=== PATIENT | female | born 1945 | race Caucasian/White ===

== ENCOUNTER → 2017-09-18 | Outpatient (CLI) | payer MEDICARE, OTHER ==
[~2017-09-18] MED LIST: ACE3 PO; ALPR-429 PO; AMOX-362 PO; CEFU500T50 PO; GLI5 PO; GLIM2TAB43 PO; GLIM4TAB50 PO; GLY25 PO; HCTZ25 PO; HYDR-2966 PO; HYDR-4309 PO; LEVO500T PO; LOR5/325 PO; MET500 PO; METF-1 PO; METF-409 PO; METF-410 PO; NAPR-1043 PO; NEOM10DR44 OT; OXYGEN INH; PIO15 PO; QUIN20TA3 PO; QUIN5TAB PO; SIM10 PO; SIMV5TAB56 PO; SITA100T PO; VERIFIED
--- NOTE | 2017-09-18 16:32 | RADIOLOGY IMAGING REPORT ---
FAC[place] [facility] [place]IENT NAME: ROD VIZCARRA : [id number] MR: [id number] V: [id number] EXAM DATE: [id number] ORDERING PHYSICIAN: ARA GARCIA TECHNOLOGIST: Daja Jordan PROCEDURE:BILATERAL DIGITAL SCREENING MAMMOGRAM COMPARISON:03/23/2016, 03/17/2016 TECHNIQUE: BILATERAL CC & MLO 3D TOMOGRAPHIC IMAGES OF BOTH BREASTS WAS PREFORMED. CAD WAS USED. INDICATIONS:SCREENING BREAST DENSITY: Scattered fibroglandular densities. FINDINGS: There is an 11mm nodule in the 9 o'clock left retroareolar region minimally more prompt prior examination. Recommend targeted ultrasound of this area. Other scattered asymmetries are stable. Benign calcifications in the medial aspects of both breasts is noted. No suspicious microcalcifications present. DIAGNOSTIC CATEGORY 0--INCOMPLETE: NEED ADDITIONAL IMAGING EVALUATION. RECOMMENDATIONS: ULTRASOUND: OF THE 9 O'CLOCK LEFT RETROAREOLAR REGION TO EVALUATE THE 11mm NODULE IN THAT LOCATION. IMPRESSION: BIRADS 1: Incomplete Dictated by: Dominick Arreaga M.D. on 09/18/2017 at 14:47 Transcribed by: MARYJO on 09/18/2017 at 16:02 Approved by: Dominick Arreaga M.D. on 09/18/2017 at 16:31 [facility]
== END ==
LOC: MAMO 01:02
PROVIDERS: ATTEND Family Medicine
DX: Z12.31 Encounter for screening mammogram for malignant neoplasm of breast (principal); R92.8 Other abnormal and inconclusive findings on diagnostic imaging of breast
CPT/HCPCS: 77063; 77067

== ENCOUNTER → 2017-09-25 | Outpatient (CLI) | payer MEDICARE, OTHER ==
--- NOTE | 2017-09-25 17:32 | RADIOLOGY IMAGING REPORT ---
FACILITY: PATIENT NAME: ROD VIZCARRA : [id number] MR: [id number] V: [id number] EXAM DATE: ORDERING PHYSICIAN: ARA GARCIA TECHNOLOGIST: Nidhi Bettencourt PROCEDURE:US LEFT BREAST COMPARISON:Prior mammogram of 09/18/17, 03/23/16, prior left breast ultrasound of 03/23/16. INDICATIONS:FURTHER EVAL FINDINGS: Mildly prominent ducts are identified in the left retroareolar breast measuring up to 3mm in diameter this is most prominent in the 10 o'clock position which mayac count for the mammographic findings. A six month follow-up left mammogram is recommended for further evaluation DIAGNOSTIC CATEGORY 3--PROBABLY BENIGN FINDING. RECOMMENDATIONS: SIX MONTH FOLLOW-UP DIAGNOSTIC MAMMOGRAM: LEFT BREAST. IMPRESSION: BIRADS 3: Probably benign finding A six month follow-up left mammogram is recommended as described above. Dictated by: Racquel Watson M.D. on 09/25/2017 at 11:00 Transcribed by: SHADIA on 09/25/2017 at 15:41 Approved by: Racquel Watson M.D. on 09/25/2017 at 17:31 [facility]
== END ==
LOC: US 02:28
PROVIDERS: ATTEND Family Medicine
DX: N60.49 Mammary duct ectasia of unspecified breast (principal)

== ENCOUNTER → 2017-12-06 | Outpatient (CLI) | payer MEDICARE, OTHER ==
[~2017-12-06] MED LIST changes: +BARIUM SULFATE 176 GM BTL PO ONE; +BARIUM SULFATE 340 GM POWD ONE
--- NOTE | 2017-12-06 10:57 | RADIOLOGY IMAGING REPORT ---
FACILITY: [facility] PATIENT NAME: Dolores Clark : 1945 MR: [id number] V: [id number] EXAM DATE: ORDERING PHYSICIAN: ARA GARCIA TECHNOLOGIST: Location: [facility] Patient: Dolores Clark : 1945 Visit/Account:[id number] Date of Sevice: 12/06/2017 Exam type: CHEST PA AND LAT History: Cough Comparison: March 27, 2013. Findings: There is a 1.8 cm round density projecting over the inferior aspect the right hilum. There is no cheryl dence of focal infiltrates, pleural effusions or overt pulmonary edema. The cardiac silhouette is up per limits of normal in size. There is moderate ectasia the thoracic aorta. Several small calcinati on occasions project over the left side of the neck which may be vascular in etiology IMPRESSION: 1. 1.8 cm nodular density projects over the inferior aspect the right hilum. A mass lesion is not e xcluded. Short-term interval follow-up or chest CT may be helpful for further evaluation Cardiac silhouette is borderline enlarged Several calcination occasions project over the left side of the neck which may be vascular in etiolog y. If of concern carotid ultrasound recommended Report Dictated By: Racquel Watson MD at 12/06/2017 10:50 AM Report E-Signed By: Racquel Watson MD at 12/06/2017 10:53 AM WSN:[email or web address]
--- NOTE | 2017-12-06 15:39 | RADIOLOGY IMAGING REPORT ---
FACILITY: [facility] PATIENT NAME: Dolores Clark : 1945 MR: [id number] V: [id number] EXAM DATE: ORDERING PHYSICIAN: ARA GARCIA TECHNOLOGIST: Location: [facility] - [place] Patient: Dolores Clark : 1945 Visit/Account:[id number] Date of Sevice: 12/06/2017 Exam type: UPPER GI SERIES W/O AIR History: Cough and GERD Comparison: None. Findings: Double contrast upper GI series was performed with thick and thin barium. There is a small traction diverticulum in the midesophagus at the level of the al. There is a small hiatal hernia and mode rate to large amount of gastroesophageal reflux was observed. No significant esophageal narrowing or mucosal erosion was identified. The stomach duodenal bulb and duodenal C-loop appeared unremarkable . The fluoroscopy dose area product was 600.93 micro-Melton per meter squared. IMPRESSION: 1. Small hiatal hernia with a moderate to large amount of gastroesophageal reflux although no eviden ce of mucosal erosion or esophageal narrowing Incidentally noted is a small traction diverticulum in the midesophagus at the level the al Report Dictated By: Racquel Watson MD at 12/06/2017 3:18 PM Report E-Signed By: Racquel Watson MD at 12/06/2017 3:35 PM WSN:[email or web address]
== END ==
LOC: RAD 07:20
PROVIDERS: ATTEND Family Medicine
DX: R05 Cough (principal); K21.9 Gastro-esophageal reflux disease without esophagitis; I51.7 Cardiomegaly
CPT/HCPCS: 71046; 74240

== ENCOUNTER 2017-12-11 11:09 | Outpatient (RCR) | payer MEDICARE, OTHER ==
[~2017-12-11 11:09] MED LIST changes: -BARIUM SULFATE 176 GM BTL PO ONE; -BARIUM SULFATE 340 GM POWD ONE; -METF-410 PO; +METF-411 PO
--- NOTE | 2017-12-12 09:11 | RADIOLOGY IMAGING REPORT ---
FACILITY: [facility] PATIENT NAME: Dolores Clark : 1945 MR: [id number] V: [id number] EXAM DATE: ORDERING PHYSICIAN: ARA GARCIA TECHNOLOGIST: Location: [facility] - [place] Patient: Dolores Clark : 1945 Visit/Account:[id number] Date of Sevice: 12/12/2017 CHEST W/O CONTRAST Provided history: Follow-up abnormal chest x-ray. Cough. Additional pertinent history: none TECHNIQUE: Spiral scan was obtained from the lower neck through the lung bases without intravenous co ntrast. Source images were reformatted in the coronal and sagittal planes. Additional series performed today: none One of the following dose optimization techniques was utilized in the performance of this exam: Autom ated exposure control; adjustment of the mA and/or kV according to the patient's size; or use of an i terative reconstruction technique. Specific details can be referenced in the facility's radiology CT exam operational policy. COMPARISON STUDIES: Recent chest x-ray 12/06/[address] most recent available CT chest 01/14/08 FINDINGS: Lungs / pleura / aadma: Circumscribed 9 x 9 mm subpleural nodule right upper lobe, image 89. This i s faintly visible on the most recent chest radiograph. Comparison to older chest radiographs, it is only equivocally visualized but probably has increased in size. On previous CT in 2007, thi s nodule measured 3 x 3 mm. There is a centrally calcified nodule left upper lobe, image 99 measuring 4 x 4 mm, benign. A 2 x 3 mm noncalcified nodule image 167 in the right middle lobe is not clearly present on the prior CT. No additional new or enlarging nodules in either lung. On this non-IV enhanced series, there is asymmetric fullness in the right hilum consistent with adeno jose miguel that is similar in general fullness to the prior CT report with IV contrast. Correlating with the prior enhanced CT, the lymph nodes of the right hilum are smaller today compared to prior. Adenopathy left hilum has essentially resolved. There are no new or enlarging mediastina l lymph nodes. Lower neck: negative Mediastinum: negative Heart / pericardium: Progressive calcification mitral valve annulus. New mild calcification of the coronaries. Vessels: Main pulmonary artery is abnormally large up to 44 mm compared to the adjacent ascending aor ta measures 29 mm. Previous study showed a measurement of the main pulmonary artery 39 mm. 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 Lymph nodes: See above. No significant additional lymph node findings. Body wall: negative Upper abdomen: negative Bones: Stable degenerative changes of the thoracic spine. No new lytic or blastic bone lesion. IMPRESSION: 1. Enlarging indeterminate nodule right upper lobe but over a long time period of 10 years, more lik kei benign, less likely a low-grade neoplasm. Suggest either surveillance follow-up with a low-dose CT chest in one year or performing PET now. 2. Fullness in the right hilum identified on recent chest radiograph correlates with vascular ectasi a and lymph nodes on the CT. See above comments. These lymph nodes today are less prominent compare d to prior CT and likely benign. 3. New micronodule right middle lobe, is likely benign and a 1 year low dose follow-up is sufficient . 4. Prominent and progressive enlargement of the main and central pulmonary arteries, consistent with pulmonary hypertension. Etiology unclear. It does not appear to be on the basis of pulmonary paren chymal destruction. 5. 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 Report Dictated By: Ayaz Parker MD at 12/12/2017 8:50 AM Report E-Signed By: Ayaz Parker MD at 12/12/2017 9:06 AM WSN:[email or web address]
== END 2017-12-12 18:00 | disposition home or self-care (01) ==
LOC: CT 11:09 → EDSTATUS 12-12 11:09 → CT 12-12 18:00
PROVIDERS: ATTEND Family Medicine
DX: Z01.812 Encounter for preprocedural laboratory examination (principal); R05 Cough; R91.8 Other nonspecific abnormal finding of lung field; E11.65 Type 2 diabetes mellitus with hyperglycemia; R91.1 Solitary pulmonary nodule; I71.9 Aortic aneurysm of unspecified site, without rupture
CPT/HCPCS: 36415; 71250; 82040; 82247; 82310; 82374; 82435; 82565; 82947; 84075; 84132; 84155; 84295; 84450; 84460; 84520

== ENCOUNTER → 2018-01-15 | Outpatient (CLI) | payer MEDICARE, OTHER | LOC: LAB 07:17 | PROVIDERS: ATTEND Family Medicine | DX: I10 Essential (primary) hypertension (principal); E11.65 Type 2 diabetes mellitus with hyperglycemia; E78.5 Hyperlipidemia, unspecified | CPT/HCPCS: 36415; 82040; 82043; 82247; 82310; 82374; 82435; 82465; 82565; 82947; 83036; 83718; 84075; 84132; 84155; 84295; 84450; 84460; 84478; 84520 ==

== ENCOUNTER → 2018-05-10 | Outpatient (CLI) | payer MEDICARE, OTHER ==
[~2018-05-10] MED LIST changes: -METF-411 PO; +METF-450 PO
--- NOTE | 2018-05-10 16:44 | RADIOLOGY IMAGING REPORT ---
FACILITY: [facility] PATIENT NAME: ROD VIZCARRA : [id number] MR: [id number] V: [id number] EXAM DATE: [id number] ORDERING PHYSICIAN: ARA GARCIA TECHNOLOGIST: Daja Jordan PROCEDURE:LEFT DIGITAL DIAGNOSTIC MAMMOGRAM WITH CAD ASSISTED INTERPRETATION & 3D TOMOSYNTHESIS COMPARISON:09/18/17, 03/23/16, 03/17/16 VIEWS OBTAINED: 2D full field CC & MLO & corresponding 3D tomography INDICATIONS:6 MO F/U, Follow up Left retroareolar circumscribed mass. TISSUE DENSITY: Scattered fibroglandular densities. FINDINGS: Circumscribed 9mm medial retroareolar mass has been present since 03/25/16 & appears to correlate to a dilated duct on prior Ultrasound. There has been no significant change from prior mammograms. DIAGNOSTIC CATEGORY 2--BENIGN FINDING. RECOMMENDATIONS: Resume bilateral annual screening mammography, due 09/2018. IMPRESSION: BIRADS 2: Benign finding. Dictated by: Zulay Flores M.D. on 05/10/2018 at 14:53 Transcribed by: MARYJO on 05/10/2018 at 14:58 Approved by: Zulay Flores M.D. on 05/10/2018 at 16:43 [facility]
== END ==
LOC: MAMO 04:29
PROVIDERS: ATTEND Family Medicine
DX: N60.42 Mammary duct ectasia of left breast (principal)
CPT/HCPCS: 77061; 77065

== ENCOUNTER → 2018-07-09 | Outpatient (CLI) | payer MEDICARE, OTHER ==
[~2018-07-09] MED LIST changes: -HYDR-4309 PO; +HYDR-653 PO
== END ==
LOC: LAB 08:26
PROVIDERS: ATTEND Family Medicine
DX: E11.65 Type 2 diabetes mellitus with hyperglycemia (principal); E78.5 Hyperlipidemia, unspecified; I10 Essential (primary) hypertension
CPT/HCPCS: 36415; 82040; 82043; 82247; 82310; 82374; 82435; 82465; 82565; 82947; 83036; 83718; 84075; 84132; 84155; 84295; 84450; 84460; 84478; 84520

== ENCOUNTER → 2018-12-06 | Outpatient (CLI) | payer MEDICARE, OTHER ==
[2018-12-06 12:03] LABS: PLATELET COUNT, AUTOMATED 314 K/uL (150-450)
--- NOTE | 2018-12-06 12:21 | RADIOLOGY IMAGING REPORT ---
FACILITY: [facility] - [place] PATIENT NAME: Dolores Clark : 1945 MR: [id number] V: [id number] EXAM DATE: ORDERING PHYSICIAN: ARA GARCIA TECHNOLOGIST: Location: [facility] - [place] Patient: Dolores Clark : 1945 Visit/Account:[id number] Date of Sevice: 12/06/2018 KUB SINGLE VIEW ABDOMEN Indication: Cough and abdominal pain Comparison: None Findings: Normal bowel gas pattern is seen. There is no abdominal free air. There are postoperative changes with hardware in the lower lumbar spine and changes from right and left total hip arthroplas ty. Lung bases are clear. There are changes from prior cholecystectomy. IMPRESSION: 1. Normal bowel gas pattern. 2. Postoperative changes in the lumbar spine and the right and left hip. Report Dictated By: Nabor Jimenez at 12/06/2018 12:15 PM Report E-Signed By: Nabor Jimenez at 12/06/2018 12:17 PM WSN:[email or web address]
--- NOTE | 2018-12-06 12:24 | RADIOLOGY IMAGING REPORT ---
FACILITY: [facility] - [place] PATIENT NAME: Dolores Clark : 1945 MR: [id number] V: [id number] EXAM DATE: ORDERING PHYSICIAN: ARA GARCIA TECHNOLOGIST: Location: [facility] Patient: Dolores Clark : 1945 Visit/Account:[id number] Date of Sevice: 12/06/2018 CHEST PA LAT Indication: Cough Comparison: Chest x-ray 12/06/2017 Findings: Lungs: There is a 1.1 cm nodule in the right upper lobe, unchanged from prior chest CT 12/12/2017. The left lung is clear. Mediastinum/pulmonary vasculature: There is mild cardiomegaly. The pulmonary vasculature is distinct . Bones/soft tissues: Normal. IMPRESSION: 1. Stable 1.1 cm nodule right upper lobe. This is unchanged from comparison CT chest 12/12/2017. 2. Cardiomegaly without evidence of CHF. Report Dictated By: Nabor Jimenez at 12/06/2018 12:17 PM Report E-Signed By: Nabor Jimenez at 12/06/2018 12:19 PM WSN:[email or web address]
== END ==
LOC: RAD 11:43
PROVIDERS: ATTEND Family Medicine
DX: R91.1 Solitary pulmonary nodule (principal); I51.7 Cardiomegaly
CPT/HCPCS: 36415; 71046; 74018; 82310; 82374; 82435; 82565; 82947; 84132; 84295; 84520; 85025